=== PATIENT | male | born 1965 | race Caucasian/White ===

== ENCOUNTER → 2018-01-23 | Day surgery (SDC) | payer OTHER ==
[~2018-01-23] MED LIST: IV RINGERS,LACTATED 1000ML 1,000 ML IV SCH; PROPOFOL 40 ML IV ONE
[2018-01-23 09:21] VITALS: BP 105/53
--- NOTE | 2018-01-24 02:52 | CONS ---
DATE OF CONSULTATION: 01/23/2018 REASON FOR CONSULTATION: Colorectal screening. REFERRING PHYSICIAN: Joy Fry DO. HISTORY OF PRESENT ILLNESS: A 52-year-old male whose past medical history is significant for palpitations, sleep apnea, and gastroesophageal reflux disease, is seen for colonoscopy. Bowel habits have been regular without diarrhea or constipation. There has been no melena and/or hematochezia. Weight and appetite are stable. He is otherwise without additional complaints. PAST MEDICAL HISTORY: GERD, palpitations. ALLERGIES: None. MEDICATIONS: None. FAMILY AND SOCIAL HISTORY: He is social drinker, former smoker. FAMILY HISTORY: Significant for diabetes with grandmother and hypertension with sister. PAST SURGICAL HISTORY: Status post hernia repair and vasectomy. REVIEW OF SYSTEMS: Per records. PHYSICAL EXAMINATION: GENERAL: Reveals a well-nourished, well-developed male, who is alert, cooperative, in no acute distress. VITAL SIGNS: Pulse is 50, respirations 18. HEENT: Normocephalic and atraumatic head. Pupils and extraocular muscles are not tested. Sclerae anicteric. NECK: Supple. LUNGS: Clear. CARDIOVASCULAR: Reveals an S1, S2 without S3, S4 or appreciable murmur. ABDOMEN: Soft abdomen, normal bowel sounds without appreciable hepatosplenomegaly. EXTREMITIES: Reveals no cyanosis, clubbing or edema. IMPRESSION: Colorectal screening is warranted at this time. Risks and benefits of procedure including risk of hemorrhage and perforation during the operation have been discussed and patient is willing to proceed. ROJAS MULTANI MD DR: TOSHA/laura JOB#: [id number] / [id number]
== END | disposition home or self-care (01) ==
LOC: ENDOS 08:00
PROVIDERS: ATTEND Internal Medicine Gastroenterology
DX: Z12.11 Encounter for screening for malignant neoplasm of colon (principal); K64.0 First degree hemorrhoids; K21.9 Gastro-esophageal reflux disease without esophagitis; G47.30 Sleep apnea, unspecified; Z72.89 Other problems related to lifestyle; Z87.891 Personal history of nicotine dependence; Z83.3 Family history of diabetes mellitus; Z82.49 Family history of ischemic heart disease and other diseases of the circulatory system; Z98.890 Other specified postprocedural states; Z98.52 Vasectomy status; Z87.19 Personal history of other diseases of the digestive system
CPT/HCPCS: 45378; J2704